=== PATIENT | female | born 1955 | race Caucasian/White ===

== ENCOUNTER 2018-08-15 09:17 | Outpatient (CLI) | payer BC | END 2018-08-15 09:18 | disposition home or self-care (01) | LOC: BICMAMMO 09:17 | PROVIDERS: ATTEND Family Medicine | DX: Z12.31 Encounter for screening mammogram for malignant neoplasm of breast (principal) | CPT/HCPCS: 77063; 77067 ==

== ENCOUNTER 2019-07-04 08:00 | Inpatient (IN) | payer BC ==
[2019-07-04 08:21] VITALS: BMI 25.0
[2019-07-15] MEDS ORDERED: Fentanyl 100 MCG/2 ML VIAL ONE ×2 (09:54→11:53)
[2019-07-15] MEDS ORDERED: Midazolam HCl 2 mg/2 ml Vial ONE (09:54)
[2019-07-15] MEDS ORDERED: Sodium Chloride 0.9% 100 ML ONE (10:01)
[2019-07-15] MEDS ORDERED: Tranexamic Acid 1,000 MG/10 ML VIAL ONE ×2 (10:01→14:18)
[2019-07-15] MEDS ORDERED: Ondansetron PF 4 MG/2 ML Vial IVP PRN ×2 (10:53→12:12)
[2019-07-15] MEDS ORDERED: Ropivacaine HCl/PF 250 ML in Premix Bag 1 BAG NERVE BLCK SCH (10:53)
[2019-07-15] MEDS ORDERED: Zolpidem Tartrate 5 MG TAB PO PRN ×2 (10:53→12:12)
[2019-07-15] MEDS ORDERED: Promethazine HCl 25 MG/ML VIAL IM PRN ×3 (10:53→13:40)
[2019-07-15] MEDS ORDERED: traMADol HCl 50 MG TAB PO PRN ×2 (10:53)
[2019-07-15] MEDS ORDERED: Fentanyl 100 MCG/2 ML VIAL IV PRN (10:53)
[2019-07-15] MEDS ORDERED: HYDROcodone/Acetaminophen 10/325 mg Tablet PO PRN ×2 (10:53)
[2019-07-15] MEDS ORDERED: Bupivacaine PF 0.5% 30 ML VIAL ONE (11:35)
[2019-07-15] MEDS ORDERED: Famotidine/PF 20 mg/2ml Vial ONE (11:53)
[2019-07-15] MEDS ORDERED: diphenhydrAMINE 25 MG CAP PO PRN (12:12)
[2019-07-15] MEDS ORDERED: Acetaminophen 325 MG TAB PO PRN (12:12)
[2019-07-15] MEDS ORDERED: Vancomycin HCl 1 GM in Premix Bag 1 BAG IVPB SCH (12:15)
[2019-07-15] MEDS ORDERED: Tranexamic Acid 1,000 MG in Sodium Chloride 0.9% 100 ML IVPB SCH (12:15)
[2019-07-15] MEDS ORDERED: Meperidine HCl/PF 25 MG/ML VIAL SLOW IVP PRN (13:40)
[2019-07-15] MEDS ORDERED: Promethazine HCl 25 MG/ML VIAL SLOW IVP PRN (13:40)
[2019-07-15] MEDS ORDERED: HYDROmorphone 2 MG/ML VIAL SLOW IVP PRN (13:40)
[2019-07-15] MEDS ORDERED: Ropivacaine 0.2% HCl/PF (40 MG/20 ML VIAL) ONE (13:43)
[2019-07-15] MEDS ORDERED: Bupivacaine HCl 0.5%/Epinephrine 1:200,000/PF 30 ml Vial ONE (13:43)
[2019-07-15] MEDS ORDERED: ePHEDrine 50 MG/ML VIAL ONE (14:54)
[2019-07-15] MEDS ORDERED: Dexamethasone 20 MG/5 ML VIAL ONE (14:54)
[2019-07-15] MEDS ORDERED: Lidocaine 1% PF 5 ML VIAL ONE (14:54)
[2019-07-15] MEDS ORDERED: PHENYLEPHRINE-NS 100 MCG/ML 10 ML SYRINGE ONE (14:54)
[2019-07-15] MEDS ORDERED: Ketorolac Tromethamine 30 MG/ML VIAL ONE (14:54)
[2019-07-15] MEDS ORDERED: PROPOFOL 200 MG/20 ML VIAL ONE (14:54)
[2019-07-15] MEDS ORDERED: Ondansetron PF 4 MG/2 ML Vial ONE (14:54)
[2019-07-15] MEDS ORDERED: Glycopyrrolate 0.2 MG/ML 5 ML SYRINGE ONE (14:54)
[2019-07-15] MEDS: Ketorolac Tromethamine 30 MG/ML VIAL IVP SCH ×2 (17:14→17:22)
[2019-07-15] MEDS: Sodium Chloride 0.9% 1,000 ML IV SCH ×2 (17:14→22:21)
[2019-07-15] MEDS: CEFAZOLIN 2 GM in Premix Bag 1 BAG IVPB SCH (17:23)
--- NOTE | 2019-07-15 20:24 | OP ---
DATE OF PROCEDURE: 07/15/2019 PREOPERATIVE DIAGNOSIS: Right knee osteoarthrosis. POSTOPERATIVE DIAGNOSIS: Right knee osteoarthrosis. PROCEDURE PERFORMED: Right total knee replacement using [employer] pinless navigation. BACK PAD INSPECTOR: Sudhir Pena PA-C BLOOD LOSS: Minimal. COMPLICATIONS: None. ANESTHESIA: She had general anesthetic. She also had a preoperative block. IMPLANTS: [place] [employer] total knee system. The femur size 4 cruciate-retaining, the tibial base plate was a size 4 primary tibial base plate was a 4 x 9 mm CS X3 tibial poly, and an asymmetric 29 x 9 X3 patella. DISPOSITION: She did go to recovery room in stable condition. INDICATIONS: A 64-year-old female, who has been having problems with the knee for years. At this time, she was fine, wished to have a knee replaced after failing all nonoperative treatment. PROCEDURE IN DETAIL: After all appropriate consent forms were explained and signed, the patient was taken back to the operating room and at this time was given general anesthetic. Once the level of anesthesia was appropriate, a well-padded tourniquet was placed on the right leg, and the leg was then prepped and draped in standard surgical fashion. The limb was exsanguinated and tourniquet taken up to 300 mmHg. Midline incision was made with a 10 blade down through the skin and subcutaneous tissue. Bovie electrocautery was used to coagulate any brisk venous bleeding. A new blade was used to make a medial parapatellar arthrotomy. Small subperiosteal release was performed medially and excess fat pad was removed. The knee was flexed up to gain access to the femur. The femur was navigated and distal femoral resection was made. Epicondylar access was used to align our sizing jig and this was pinned in place. We sized our femur to be a size 4 cruciate-retaining. 4:1 cutting block was applied and pinned. Anterior and posterior chamfer cuts were then made. We navigated out our proximal tibia and made our proximal tibial resection. Spreaders were used to remove any posterior osteophytes off the back of the femur as well as remaining meniscal tissue. A long alignment grace was then used to achieve correct rotation of our tibial baseplate and a size 4 primary tibial base plate was chosen. This was pinned in place. We trialed the polyethylene and a 4 x 9 mm CS X3 tibial polypolyethylene gave us full extension and good stability throughout range of motion. Two towel clips and a saw were used to cut our patella. Three lug nuts were drilled and an asymmetric 29 x 9 X3 patella was trialed which sat nicely in the trochlear groove. We then drilled our femur and punched our tibia. All components were removed. The knee was thoroughly irrigated and dried. Cement was mixed into the cement gun on the back table. Components were then placed. The knee was held out in full extension until the cement had dried. All excess bone cement was removed. Multiple #2 Vicryl stitches as well as a Quill were used to close our extensor mechanism. 0 Quill followed by a running Monoderm was then used to close the skin. Surgicel glue was then used on the skin. Once this had dried, soft tissue dressing was applied to the limb, tourniquet was let down, and the toes pinked up nicely. The patient was then awakened and taken to the recovery room in stable condition. All counts were correct at the end of the case. The patient did receive preoperative IV antibiotics. The patient was injected with Marcaine for postoperative pain relief. Job ID: [id number] [facility]
--- NOTE | 2019-07-15 21:43 | PDOC.HOSPP ---
- Subjective Encounter Date: 07/15/19 Encounter Time: 20:30 Subjective: Patient seen and examined for med mngt. No CP or SOB. Pain controlled. No new complaints. No overnight events - Objective Vital Signs & Weight: Vital Signs (12 hours) Temp Pulse Resp BP Pulse Ox 07/15/19 19:15 97.6 F 80 16 97/60 93 L 07/15/19 15:00 97.1 F L 74 20 112/63 94 L Weight Weight 165 lb I&O: 07/14/19 07/15/19 07/16/19 06:59 06:59 06:59 Intake Total 1000 Output Total 1000 Balance 0 Result Diagrams: 07/16/19 04:47 EKG Reviewed by me: Yes (SR, KENNETH) Hospitalist ROS - Review of Systems Respiratory: denies: cough, dry, shortness of breath, hemoptysis, SOB with excertion, pleuritic pain, sputum, wheezing, other Cardiovascular: denies: chest pain, palpitations, orthopnea, paroxysmal noc. dyspnea, edema, light headedness, other - Medication Medications: Active Medications Generic Name Dose Route Start Last Admin Trade Name Freq PRN Reason Stop Dose Admin Cefazolin Sodium/Dextrose 2 gm 50 mls @ 100 mls/hr 07/15/19 17:00 07/15/19 17 :23 / Device IVPB 07/16/19 01:29 50 mls [id number],1700 [place] Administration Sodium Chloride 1,000 mls @ 100 mls/hr 07/15/19 12:15 07/15/19 17:14 Normal Saline 0.9% IV Not Given .Q10H [place] Ketorolac Tromethamine 30 mg 07/15/19 12:00 07/15/19 17:22 Toradol IVP 07/17/19 06:01 30 mg Q6HR [place] Administration - Exam General Appearance: NAD Heart: RRR, no gallops, no rubs Respiratory: CTAB, no wheezes, no rales, no ronchi Gastrointestinal: soft, non-tender, normal bowel sounds Extremities: no edema Hosp A/P (1) HLD (hyperlipidemia) Code(s): E78.5 - HYPERLIPIDEMIA, UNSPECIFIED Status: Acute (2) Anxiety Code(s): F41.9 - ANXIETY DISORDER, UNSPECIFIED Status: Acute (3) Palpitations Code(s): R00.2 - PALPITATIONS Status: Acute (4) Hypothyroidism Code(s): E03.9 - HYPOTHYROIDISM, UNSPECIFIED Status: Acute (5) CKD (chronic kidney disease) stage 2, GFR 60-89 ml/min Code(s): N18.2 - CHRONIC KIDNEY DISEASE, STAGE 2 (MILD) Status: Acute (6) Moderate mitral regurgitation Code(s): I34.0 - NONRHEUMATIC MITRAL (VALVE) INSUFFICIENCY Status: Acute (7) Seafood allergy Code(s): Z91.013 - ALLERGY TO SEAFOOD Status: Acute (8) Collagenous colitis Code(s): K52.831 - COLLAGENOUS COLITIS Status: Chronic - Plan PT/OT, incentive spirometry, DVT proph w/SCDs Cont Propanolol Cont Buspirone Cont Levothyroxine Cont Statins Will follow.
[2019-07-15] MEDS: Aspirin 81 mg Enteric Coated Tablet PO SCH (22:00)
[2019-07-15] MEDS: Propranolol HCl 20 MG TAB PO SCH (22:00)
[2019-07-15] MEDS: Atorvastatin Calcium 20 MG TAB PO SCH (22:00)
[2019-07-15] MEDS: Senokot S 8.6-50 MG TAB PO SCH (22:00)
[2019-07-15] MEDS: Calcium Polycarbophil 625 MG TAB PO SCH (22:00)
[2019-07-15] MEDS: Calcium Carbonate + Vit D 1 TAB PO SCH (22:00)
[2019-07-15] MEDS: Ferrous Gluconate 324 MG TAB PO SCH (22:00)
[2019-07-16] MEDS: Ketorolac Tromethamine 30 MG/ML VIAL IVP SCH ×4 (00:51→18:43)
[2019-07-16] MEDS: CEFAZOLIN 2 GM in Premix Bag 1 BAG IVPB SCH (00:52)
[2019-07-16 05:12] LABS: Hemoglobin 11.9 g/dL (12.0-16.0); Mean Corpuscular HGB CONC 33.9 g/dL (32.0-36.0); Mean Corpuscular Hemoglobin 32.2 pg (27.0-31.0); Mean Corpuscular Volume 95.1 fL (78.0-98.0); Mean Platelet Volume 7.1 fL (7.4-10.4); Platelet Count 224 thou/uL (130-400); RBC Distribution Width 11.8 % (11.5-14.5); Red Blood Cell (RBC) Count 3.71 mill/uL (4.20-5.40); White Blood Cell (WBC) Count 13.4 thou/uL (4.8-10.8)
[2019-07-16] MEDS: Levothyroxine Sodium 75 MCG TAB PO SCH (05:18)
[2019-07-16] MEDS: Liothyronine Sodium 5 MCG TAB PO SCH (05:18)
[2019-07-16] MEDS: Multivitamin W/ Minerals 1 TAB PO SCH (08:42)
[2019-07-16] MEDS: Aspirin 81 mg Enteric Coated Tablet PO SCH ×2 (08:42→21:46)
[2019-07-16] MEDS: Ferrous Gluconate 324 MG TAB PO SCH ×2 (08:42→21:46)
[2019-07-16] MEDS: Calcium Carbonate + Vit D 1 TAB PO SCH ×2 (08:43→21:46)
[2019-07-16] MEDS: busPIRone HCl 5 MG TAB PO SCH (08:43)
[2019-07-16] MEDS: Propranolol HCl 20 MG TAB PO SCH ×2 (08:43→21:47)
[2019-07-16] MEDS: Loratadine 10 MG TAB PO SCH (08:43)
[2019-07-16] MEDS: Senokot S 8.6-50 MG TAB PO SCH ×2 (08:43→21:48)
[2019-07-16] MEDS: Sodium Chloride 0.9% 1,000 ML IV SCH ×2 (08:44→18:48)
[2019-07-16] MEDS ORDERED: Liothyronine Sodium 5 MCG TAB PO SCH (09:00)
--- NOTE | 2019-07-16 15:11 | PRG ---
DATE OF SERVICE: 07/16/2019 SUBJECTIVE: Carla is a 64-year-old white female, who is postop day #1 from right total knee arthroplasty. She is doing very well. She has no complaints of pain. The patient ambulated 50 feet this afternoon and did very well with that. She is alert and oriented to person, place, time, and situation. Nonfocal, responsive, and appropriate with examiner. LABORATORY DATA: Hemoglobin and hematocrit of 11.9 and 35.2. IMPRESSION: A 64-year-old white female, postop day #1 right total knee arthroplasty, doing well. PLAN: Continue current care. Discharge home tomorrow. Job ID: [id number]
--- NOTE | 2019-07-16 21:40 | PDOC.HOSPP ---
- Subjective Encounter Date: 07/16/19 Encounter Time: 08:15 Subjective: Patient seen and examined for med mngt. No fever/chills or CP. No new complaints. No overnight events - Objective Vital Signs & Weight: Vital Signs (12 hours) Temp Pulse Resp BP Pulse Ox 07/16/19 19:35 98.8 F 89 16 97/63 97 07/16/19 15:06 98.0 F 79 16 104/63 97 Weight Admit Weight 165 lb Weight 165 lb I&O: 07/15/19 07/16/19 07/17/19 06:59 06:59 06:59 Intake Total 1052 3530 Output Total 1000 1300 Balance 52 2230 Result Diagrams: 07/16/19 04:47 Hospitalist ROS - Review of Systems Respiratory: denies: cough, dry, shortness of breath, hemoptysis, SOB with excertion, pleuritic pain, sputum, wheezing, other Cardiovascular: denies: chest pain, palpitations, orthopnea, paroxysmal noc. dyspnea, edema, light headedness, other Gastrointestinal: denies: nausea, vomitting, abdominal pain, diarrhea, constipation, melena, hematochezia, other - Medication Medications: Active Medications Generic Name Dose Route Start Last Admin Trade Name Freq PRN Reason Stop Dose Admin Hydrocodone Bitart/Acetaminophen 2 tab 07/15/19 10:53 07/16/19 08:44 Rougon 10/325 PO 2 tab Q4H PRN Administration PAIN (4-6) Aspirin 81 mg 07/15/19 21:00 07/16/19 08:42 Ecotrin PO 81 mg BID [place] Administration Atorvastatin Calcium 20 mg 07/15/19 21:00 07/15/19 22:00 Lipitor PO 20 mg QPM [place] Administration Buspirone HCl 5 mg 07/16/19 09:00 07/16/19 08:43 Buspar PO 5 mg QAM [place] Administration Calcium Polycarbophil 1,250 mg 07/15/19 21:00 07/15/19 22:00 Fibercon PO 1,250 mg HS [place] Administration Calcium/Vitamin D 1 tab 07/15/19 21:00 07/16/19 08:43 Caltrate 600 + Vit D PO 1 tab BID [place] Administration Ferrous Gluconate 324 mg 07/15/19 21:00 07/16/19 08:42 Fergon PO 324 mg BID [place] Administration Ropivacaine 250 ml/ Device 250 mls @ 0 mls/hr 07/15/19 10:53 07/16/19 14:54 NERVE BLCK 250 mls INF [place] Administration As Directed Sodium Chloride 1,000 mls @ 100 mls/hr 07/15/19 12:15 07/16/19 18:48 Normal Saline 0.9% IV Not Given .Q10H [place] Iron/Minerals/Multivitamins 1 tab 07/16/19 09:00 07/16/19 08:42 Theragran M PO 1 tab DAILY [place] Administration Ketorolac Tromethamine 30 mg 07/15/19 12:00 07/16/19 18:43 Toradol IVP 07/17/19 06:01 30 mg Q6HR [place] Administration Levothyroxine Sodium 75 mcg 07/16/19 06:00 07/16/19 05:18 Synthroid PO 75 mcg 0600 [place] Administration Liothyronine Sodium 5 mcg 07/16/19 06:00 07/16/19 05:18 Cytomel PO 5 mcg 0600 [place] Administration Loratadine 10 mg 07/16/19 09:00 07/16/19 08:43 Claritin PO Not Given DAILY [place] Propranolol HCl 20 mg 07/15/19 21:00 07/16/19 08:43 Inderal PO 20 mg BID [place] Administration Senna/Docusate Sodium 2 tab 07/15/19 21:00 07/16/19 08:43 Senokot S PO 2 tab BID [place] Administration Sodium Chloride 10 ml 07/15/19 21:00 07/16/19 08:45 Flush - Normal Saline IVF 10 ml Q12HR [place] Administration Tramadol HCl 100 mg 07/15/19 10:53 07/16/19 13:33 Ultram PO 100 mg Q6H PRN Administration Moderate Pain 4-6 - Exam General Appearance: NAD Heart: RRR, no gallops Respiratory: CTAB, no rales Gastrointestinal: soft, non-tender, normal bowel sounds Hosp A/P (1) HLD (hyperlipidemia) Code(s): E78.5 - HYPERLIPIDEMIA, UNSPECIFIED Status: Acute (2) Anxiety Code(s): F41.9 - ANXIETY DISORDER, UNSPECIFIED Status: Acute (3) Palpitations Code(s): R00.2 - PALPITATIONS Status: Acute (4) Hypothyroidism Code(s): E03.9 - HYPOTHYROIDISM, UNSPECIFIED Status: Acute (5) CKD (chronic kidney disease) stage 2, GFR 60-89 ml/min Code(s): N18.2 - CHRONIC KIDNEY DISEASE, STAGE 2 (MILD) Status: Acute (6) Moderate mitral regurgitation Code(s): I34.0 - NONRHEUMATIC MITRAL (VALVE) INSUFFICIENCY Status: Acute (7) Seafood allergy Code(s): Z91.013 - ALLERGY TO SEAFOOD Status: Acute (8) Collagenous colitis Code(s): K52.831 - COLLAGENOUS COLITIS Status: Chronic - Plan DVT proph w/SCDs Cont Propanolol for Palpitations Cont Buspirone/Levothyroxine/Statins Will follow PRN.
[2019-07-16] MEDS: Atorvastatin Calcium 20 MG TAB PO SCH (21:46)
[2019-07-16] MEDS: Calcium Polycarbophil 625 MG TAB PO SCH (21:47)
[2019-07-17] MEDS: Ketorolac Tromethamine 30 MG/ML VIAL IVP SCH ×2 (01:00→06:33)
[2019-07-17] MEDS: Sodium Chloride 0.9% 1,000 ML IV SCH ×2 (03:50→09:04)
[2019-07-17 04:29] VITALS: TEMP 98.7
[2019-07-17 04:52] LABS: Mean Corpuscular HGB CONC 33.2 g/dL (32.0-36.0); Mean Corpuscular Hemoglobin 31.4 pg (27.0-31.0); Mean Corpuscular Volume 94.6 fL (78.0-98.0); Mean Platelet Volume 7.4 fL (7.4-10.4); Platelet Count 207 thou/uL (130-400); Red Blood Cell (RBC) Count 3.51 mill/uL (4.20-5.40); White Blood Cell (WBC) Count 9.6 thou/uL (4.8-10.8)
[2019-07-17] MEDS: Levothyroxine Sodium 75 MCG TAB PO SCH (06:32)
[2019-07-17] MEDS: Liothyronine Sodium 5 MCG TAB PO SCH (06:32)
[2019-07-17] MEDS: Calcium Carbonate + Vit D 1 TAB PO SCH (07:41)
[2019-07-17] MEDS: Aspirin 81 mg Enteric Coated Tablet PO SCH (07:41)
[2019-07-17] MEDS: busPIRone HCl 5 MG TAB PO SCH (07:41)
[2019-07-17] MEDS: Multivitamin W/ Minerals 1 TAB PO SCH (07:41)
[2019-07-17] MEDS: Propranolol HCl 20 MG TAB PO SCH (07:42)
[2019-07-17] MEDS: Ferrous Gluconate 324 MG TAB PO SCH (07:42)
[2019-07-17] MEDS: Loratadine 10 MG TAB PO SCH (07:42)
[2019-07-17] MEDS: Senokot S 8.6-50 MG TAB PO SCH (07:43)
[2019-07-17 12:05] VITALS: BP 148/90
== END 2019-07-17 14:19 | disposition home or self-care (01) | DRG 470 ==
LOC: SURG A 07-15 09:01 → SJJU 07-15 14:58
PROVIDERS: ADMIT Orthopaedic Surgery; ATTEND Orthopaedic Surgery
PROC: 0SRC0J9 Replacement of Right Knee Joint with Synthetic Substitute, Cemented, Open Approach (ICD-10-PCS; principal; 2019-07-15)
DX: M17.11 Unilateral primary osteoarthritis, right knee (principal); E78.5 Hyperlipidemia, unspecified; F41.9 Anxiety disorder, unspecified; E03.9 Hypothyroidism, unspecified; N18.2 Chronic kidney disease, stage 2 (mild); I34.0 Nonrheumatic mitral (valve) insufficiency; K52.831 Collagenous colitis; Z91.013 Allergy to seafood; Z98.51 Tubal ligation status; Z79.899 Other long term (current) drug therapy
CPT/HCPCS: 36415; 85027; J0670; J0690; J1100; J1885; J2001; J2250; J2405; J2704; J2795; J3010; J3370; J3490; S0020; S0028

== ENCOUNTER 2019-07-04 08:08 | Outpatient (CLI) | payer BC ==
[2019-07-04 09:39] LABS: #Basophils 0.1 thou/uL (0.0-0.2); #Eosinphils 0.2 thou/uL (0.0-0.7); #Lymphocytes 1.6 thou/uL (1.20-3.40); #Monocytes 0.4 thou/uL (0.11-0.59); #Neutrophils 2.8 thou/uL (1.40-6.50); %Basophils 1.2 % (0.0-1.0); %Eosinophils 3.1 % (0.0-10.0); %Lymphocytes 31.6 % (21.0-51.0); %Monocytes 8.6 % (0.0-10.0); %Neutrophils 55.5 % (42.0-75.0); Hemoglobin 13.9 g/dL (12.0-16.0); Mean Corpuscular HGB CONC 32.8 g/dL (32.0-36.0); Mean Corpuscular Hemoglobin 31.1 pg (27.0-31.0); Mean Corpuscular Volume 94.8 fL (78.0-98.0); Mean Platelet Volume 7.2 fL (7.4-10.4); Platelet Count 263 thou/uL (130-400); RBC Distribution Width 11.7 % (11.5-14.5); Red Blood Cell (RBC) Count 4.48 mill/uL (4.20-5.40)
[2019-07-04 09:46] LABS: Bacteria/HPF None Seen HPF (None Seen); Bilirubin Negative (Negative); Blood, Urine Negative (Negative); Clarity Clear (Clear); Glucose, Urine (Dipstick) Normal (Negative); Leukocyte Negative Leu/uL (Negative); Nitrite Negative (Negative); Protein, Urine (Dipstick) Negative (Neg-Trace); RBC/HPF 0-3 HPF (0-3); Squamous Epithelial 0-3 HPF (0-3); Urobilinogen Normal mg/dL (Less than 2); WBC/HPF 0-3 HPF (0-3)
[2019-07-04 09:50] LABS: INR-International Normal Ratio 0.9; Prothrombin Time 12.3 SEC (12.0-14.7)
[2019-07-04 09:59] LABS: Anion Gap 12 mmol/L (10-20); BUN (Urea Nitrogen) 13 mg/dL (9.8-20.1); Calc. Creatinine Clearance 0 mL/min (70-130); Calcium 9.9 mg/dL (7.8-10.44); Carbon Dioxide 29 mmol/L (23-31); Chloride 105 mmol/L (98-107); Estimated GFR-MDRD 72; Glucose 85 mg/dL (80-115); Potassium 4.2 mmol/L (3.5-5.1); Sodium 142 mmol/L (136-145)
== END 2019-07-04 08:09 | disposition home or self-care (01) ==
LOC: LABBT 08:08
PROVIDERS: ATTEND Orthopaedic Surgery
DX: Z01.818 Encounter for other preprocedural examination (principal); M17.11 Unilateral primary osteoarthritis, right knee
CPT/HCPCS: 80048; 81001; 85025; 85610; 87081; 93005; 93010

== ENCOUNTER 2019-09-19 09:57 | Outpatient (CLI) | payer BC ==
--- NOTE | 2019-09-19 11:50 | MMO ---
Bilateral MAMMO Bilat Screen [facility]. CLINICAL HISTORY: Patient is 64 years old and is seen for screening. The patient has no family history of breast cancer. The patient has no personal history of cancer. The patient has a history of left Excisional Biopsy in 2004 - benign - Removed benign cyst. and left Cyst Aspiration - benign - times 3. VIEWS: The views performed were: bilateral craniocaudal with tomosynthesis and bilateral mediolateral oblique with tomosynthesis. FILMS COMPARED: The present examination has been compared to prior imaging studies performed at [facility] on 08/10/2015, 08/11/2016, 08/14/2017 and 08/15/2018. This study has been interpreted with the assistance of computer-aided detection. MAMMOGRAM FINDINGS: There are scattered fibroglandular densities. There are benign appearing calcifications seen in both breasts. There are no suspicious masses, suspicious calcifications, or new areas of architectural distortion. IMPRESSION: THERE IS NO MAMMOGRAPHIC EVIDENCE OF MALIGNANCY. A ROUTINE FOLLOW-UP MAMMOGRAM IN 1 YEAR IS RECOMMENDED. THE RESULTS OF THIS EXAM WERE SENT TO THE PATIENT. ACR BI-RADS Category 2 - Benign finding MAMMOGRAPHY NOTE: 1. A negative mammogram report should not delay a biopsy if a dominant of clinically suspicious mass is present. 2. Approximately 10% to 15% of breast cancers are not detected by mammography. 3. Adenosis and dense breasts may obscure an underlying neoplasm. Reported by: KRISSY QUEEN MD Electonically Signed: [id number]
== END 2019-09-19 09:58 | disposition home or self-care (01) ==
LOC: BICMAMMO 09:57
PROVIDERS: ATTEND Family Medicine
DX: Z12.31 Encounter for screening mammogram for malignant neoplasm of breast (principal)
CPT/HCPCS: 77063; 77067

== ENCOUNTER 2021-07-09 14:22 | Outpatient (CLI) | payer MEDICARE, OTHER | END 2021-07-09 14:23 | disposition home or self-care (01) | LOC: TBSIIMAG 14:22 | PROVIDERS: ATTEND Orthopaedic Surgery | DX: M23.92 Unspecified internal derangement of left knee (principal); S83.241A Other tear of medial meniscus, current injury, right knee, initial encounter ==

== ENCOUNTER 2021-11-16 10:00 | Outpatient (CLI) | payer MEDICARE, OTHER ==
[2021-11-16 11:37] LABS: #Eosinphils 0.1 10x3/uL (0.0-0.5); #Monocytes 0.4 10x3/uL (0.0-1.1); %Basophils 0.8 % (0.0-2.0); %Eosinophils 2.3 % (0.0-6.0); %Lymphocytes 31.8 % (18.0-47.0); %Monocytes 7.3 % (0.0-10.0); %Neutrophils 57.6 % (40.0-75.0); Hemoglobin 13.7 g/dL (12.0-15.5); Mean Corpuscular HGB CONC 32.2 g/dL (32.0-36.0); Mean Corpuscular Hemoglobin 30.9 pg (27.0-33.0); Mean Corpuscular Volume 95.9 fl (81.6-98.3); Mean Platelet Volume 9.8 fl (7.4-10.4); Platelet Count 283 10x3/uL (150-450); RBC Distribution Width 13.5 % (11.5-14.5); Red Blood Cell (RBC) Count 4.44 10x6/uL (3.90-5.03); White Blood Cell (WBC) Count 5.2 10x3/uL (3.5-10.5)
[2021-11-16 12:13] LABS: Anion Gap 11 mmol/L (10-20); BUN (Urea Nitrogen) 14 mg/dL (9.8-20.1); Calc. Creatinine Clearance 0 mL/min (70-130); Carbon Dioxide 30 mmol/L (23-31); Chloride 104 mmol/L (98-107); Glucose 67 mg/dL (80-115); Potassium 4.3 mmol/L (3.5-5.1); Sodium 141 mmol/L (136-145)
[2021-11-16 22:53] LABS: SARS-CoV-2 PCR by NAA Not Detected (NotDetected)
== END 2021-11-16 10:01 | disposition home or self-care (01) ==
LOC: LABBT 10:00
PROVIDERS: ATTEND Orthopaedic Surgery
DX: Z01.818 Encounter for other preprocedural examination (principal); S83.242A Other tear of medial meniscus, current injury, left knee, initial encounter; Z20.822 Contact with and (suspected) exposure to COVID-19
CPT/HCPCS: 71046; 80048; 85025; 93005; U0003; U0005; 93010

== ENCOUNTER 2021-11-19 07:21 | Day surgery (SDC) | payer MEDICARE, OTHER ==
[2021-11-18 10:04] VITALS: BMI 25.0
[2021-11-19] MEDS ORDERED: Fentanyl 100 MCG/2 ML VIAL ONE ×3 (08:52→11:18)
[2021-11-19] MEDS ORDERED: Midazolam HCl 2 mg/2 ml Vial ONE (08:52)
[2021-11-19] MEDS ORDERED: Famotidine/PF 20 mg/2ml Vial ONE (09:38)
[2021-11-19] MEDS ORDERED: ceFAZolin 2 GM/Dextrose 50 ML IVPB ONE (09:51)
[2021-11-19] MEDS ORDERED: Ketorolac Tromethamine 30 MG/ML VIAL ONE (10:05)
[2021-11-19] MEDS ORDERED: ePHEDrine 50 MG/ML VIAL ONE (10:05)
[2021-11-19] MEDS ORDERED: Lidocaine 2% w/Epinephrine 1:200K 20 ML VIAL ONE (10:05)
[2021-11-19] MEDS ORDERED: Dexamethasone 20 MG/5 ML VIAL ONE (10:05)
[2021-11-19] MEDS ORDERED: Lidocaine 1% PF 5 ML VIAL ONE (10:05)
[2021-11-19] MEDS ORDERED: PROPOFOL 200 MG/20 ML VIAL ONE (10:05)
[2021-11-19] MEDS ORDERED: Bupivacaine HCl 0.5%/Epinephrine 1:200,000/PF 30 ml Vial ONE (10:05)
[2021-11-19] MEDS ORDERED: Ondansetron PF 4 MG/2 ML Vial ONE (10:05)
[2021-11-19] MEDS ORDERED: HYDROcodone/Acetaminophen 5/325 mg Tablet ONE (12:57)
== END 2021-11-19 13:56 | disposition home or self-care (01) ==
LOC: SDC 07:21
PROVIDERS: ATTEND Orthopaedic Surgery
PROC: 0SBD4ZZ Excision of Left Knee Joint, Percutaneous Endoscopic Approach (ICD-10-PCS; principal; 2021-11-19)
DX: S83.242A Other tear of medial meniscus, current injury, left knee, initial encounter (principal); E78.5 Hyperlipidemia, unspecified; E03.9 Hypothyroidism, unspecified; M85.80 Other specified disorders of bone density and structure, unspecified site; Z79.82 Long term (current) use of aspirin; Z79.890 Hormone replacement therapy; Z79.899 Other long term (current) drug therapy
CPT/HCPCS: J0690; J1100; J1885; J2250; J2405; J2704; J3010; J3490; S0028